=== PATIENT | female | born 1960 | race African-American/Black ===

== ENCOUNTER 2022-04-24 15:02 | Inpatient (IN) ==
[2022-04-24 17:22] LABS: Basophils # 0.1 10*3/uL (0.0-0.2); Eosinophils # 0.2 10*3/uL (0.0-0.87); Eosinophils % 3.6 % (0.00-10.9); Hemoglobin 6.8 GM/DL (12.0-16.0); Immature Granulocytes % 20.9 %; Lymphocytes # 1.3 10*3/uL (1.4-4.0); Lymphocytes % 19.9 % (21.3-54.2); Mean Corpuscular HGB Conc 30.9 GM/DL (32-36); Monocytes # 0.7 10*3/uL (0.11-0.8); Monocytes % 10.8 % (1.7-12.7); NRBC # 0.58 10*3/uL; Neutrophils % 43.8 % (38.7-73.9); Platelet Count 188 T/CUMM (130-400); Red Blood Count 1.88 MC/CUMM (3.8-5.5); Red Cell Distribution Width 22.4 % (9.3-17.3); White Blood Count 6.7 T/CUMM (4-12)
[2022-04-24 17:34] LABS: INR 1.2
[2022-04-24 17:41] LABS: Albumin 2.1 G/DL (3.4-5.0); Bilirubin,Total 1.2 MG/DL (0.20-1.00); Calcium 9.2 MG/DL (8.5-10.1); Osmolality,Calculated 282.5 MOS/KG (273-304); Potassium 4.7 MMOL/L (3.5-5.1); Total Protein 6.3 G/DL (6.4-8.2)
[2022-04-24] MEDS ORDERED: SODIUM CHLORIDE 0.9% 1,000 ML IV PRN (17:51)
[2022-04-24 18:32] LABS: Band Neutrophils 3 % (0-10); Eosinophils 3 % (0-10); Lymphocytes 22 % (20-55); Metamyelocytes 3 %; Myelocytes 9 %; Nucleated Red Blood Cells 7 /100 WBC (0-5); Total Cells Counted 100
[2022-04-24 18:36] LABS: Anisocytosis 1+; Macrocytosis 1+
[2022-04-24 18:38] LABS: Microcytosis Slight
[2022-04-24 18:39] LABS: Atypical Lymphocytes Few; Hypochromia Slight; Platelet Estimate Adequate
[2022-04-24] MEDS ORDERED: ZALEPLON 5 MG CAPSULE PO PRN (20:38)
[2022-04-24] MEDS ORDERED: MORPHINE 2 MG/1 ML SYRINGE IV PRN (20:38)
[2022-04-24] MEDS ORDERED: NICOTINE 21 MG/24 HR PATCH TRANSDERM PRN (20:38)
[2022-04-24] MEDS ORDERED: guaiFENesin/DM ER 600-30 MG TABLET PO PRN (20:38)
[2022-04-24] MEDS ORDERED: hydrALAZINE 20 MG/1 ML VIAL IV PRN (20:38)
[2022-04-24] MEDS ORDERED: diphenhydrAMINE CAP 25 MG CAPSULE PO PRN (20:38)
[2022-04-24] MEDS ORDERED: ACETAMINOPHEN 325 MG TABLET PO PRN (20:38)
[2022-04-24] MEDS ORDERED: ONDANSETRON 4 MG/2 ML VIAL IV PRN (20:38)
[2022-04-24 23:05] LABS: Mucus,Urine Occasional /LPF (Occasional); RBC,Urine 1 /HPF (0-4); Squamous Epithelial Cell,Urine Occasional /HPF (0-10)
[2022-04-24 23:08] LABS: Urine Appearance Clear (Clear); Urine Color Yellow (Yellow); Urine Specific Gravity 1.025 (1.001-1.035)
[2022-04-24 23:09] LABS: Bilirubin,Urine Small mg/dL (Negative); Blood, Urine Negative (Negative); Glucose,Urine (UA) Negative (Negative); Ketones,Urine Negative (Negative); Nitrite,Urine Negative (Negative); Protein,Urine Trace mg/dL (Negative)
[2022-04-25] MEDS: ALBUTEROL/IPRATROPIUM 3 ML NEB RESP TX SCH ×4 (00:40→19:15)
[2022-04-25 04:45] LABS: Basophils # 0.1 10*3/uL (0.0-0.2); Basophils % 1.4 % (0.0-0.8); Eosinophils # 0.2 10*3/uL (0.0-0.87); Eosinophils % 2.6 % (0.00-10.9); Hematocrit 25.1 VOL% (35.7-47.0); Immature Granulocytes % 18.4 %; Immature Granulocytes Absolute 1.22 #; Lymphocytes # 1.7 10*3/uL (1.4-4.0); Lymphocytes % 25.9 % (21.3-54.2); Mean Corpuscular HGB Conc 31.9 GM/DL (32-36); Mean Corpuscular Volume 108.7 FL (87-102); Monocytes # 0.7 10*3/uL (0.11-0.8); Monocytes % 9.9 % (1.7-12.7); NRBC # 0.57 10*3/uL; Neutrophils % 41.8 % (38.7-73.9); Platelet Count 171 T/CUMM (130-400); Red Blood Count 2.31 MC/CUMM (3.8-5.5); White Blood Count 6.6 T/CUMM (4-12)
[2022-04-25 04:58] LABS: Calcium 9.2 MG/DL (8.5-10.1); Osmolality,Calculated 279.7 MOS/KG (273-304); Potassium 4.3 MMOL/L (3.5-5.1)
[2022-04-25 05:13] LABS: Band Neutrophils 6 % (0-10); Eosinophils 4 % (0-10); Hypochromia Slight; Lymphocytes 34 % (20-55); Myelocytes 3 %; Nucleated Red Blood Cells 11 /100 WBC (0-5); Platelet Estimate Adequate; Total Cells Counted 100
[2022-04-25 05:14] LABS: Anisocytosis Slight; Giant Platelets Few
[2022-04-25] MEDS: PANTOPRAZOLE 40 MG VIAL IV SCH (09:48)
[2022-04-25] MEDS: BISACODYL 5 MG TABLET PO SCH ×2 (11:58→18:46)
[2022-04-25] MEDS: INSULIN LISPRO 100 UNIT/ML SUBCUT SCH ×2 (13:43→18:34)
[2022-04-25] MEDS ORDERED: BENZONATATE 100 MG CAPSULE PO PRN (14:16)
[2022-04-25] MEDS ORDERED: POLYETHYLENE GLYCOL POWDER 255 GM BOTTLE PO ONE (18:00)
[2022-04-25] MEDS ORDERED: MAGNESIUM HYDROXIDE SUSP 30 ML UDCUP PO ONE (21:00)
[2022-04-25] MEDS: FOLIC ACID 1 MG TABLET PO SCH (21:04)
[2022-04-26] MEDS: ALBUTEROL/IPRATROPIUM 3 ML NEB RESP TX SCH ×4 (01:05→20:06)
[2022-04-26] MEDS: INSULIN LISPRO 100 UNIT/ML SUBCUT SCH ×4 (01:09→18:35)
[2022-04-26] MEDS: BISACODYL 5 MG TABLET PO SCH (02:30)
[2022-04-26 06:01] LABS: Basophils # 0.1 10*3/uL (0.0-0.2); Basophils % 1.3 % (0.0-0.8); Eosinophils # 0.2 10*3/uL (0.0-0.87); Eosinophils % 2.6 % (0.00-10.9); Hematocrit 22.3 VOL% (35.7-47.0); Hemoglobin 7.4 GM/DL (12.0-16.0); Immature Granulocytes % 15.2 %; Immature Granulocytes Absolute 0.94 #; Lymphocytes # 1.3 10*3/uL (1.4-4.0); Lymphocytes % 21.7 % (21.3-54.2); Mean Corpuscular HGB Conc 33.2 GM/DL (32-36); Mean Corpuscular Volume 105.7 FL (87-102); Monocytes # 0.6 10*3/uL (0.11-0.8); Monocytes % 9.1 % (1.7-12.7); NRBC # 0.38 10*3/uL; Neutrophils % 50.1 % (38.7-73.9); Platelet Count 153 T/CUMM (130-400); Red Blood Count 2.11 MC/CUMM (3.8-5.5); Red Cell Distribution Width 23.8 % (9.3-17.3); White Blood Count 6.2 T/CUMM (4-12)
[2022-04-26 06:13] LABS: Osmolality,Calculated 272.1 MOS/KG (273-304); Potassium 3.9 MMOL/L (3.5-5.1)
[2022-04-26] MEDS: LEVOTHYROXINE 75 MCG TABLET PO SCH (06:16)
[2022-04-26 06:45] LABS: Eosinophils 4 % (0-10); Hypochromia 1+; Lymphocytes 43 % (20-55); Microcytosis Slight; Nucleated Red Blood Cells 4 /100 WBC (0-5); Platelet Estimate Adequate; Total Cells Counted 100
[2022-04-26 06:46] LABS: Atypical Lymphocytes Few
[2022-04-26] MEDS ORDERED: SODIUM CHLORIDE 0.9% 1,000 ML IV PRN (06:50)
[2022-04-26] MEDS: atenoloL 50 MG TABLET PO SCH (08:46)
[2022-04-26] MEDS: PANTOPRAZOLE 40 MG VIAL IV SCH (08:47)
[2022-04-26] MEDS: FOLIC ACID 1 MG TABLET PO SCH ×2 (08:47→20:39)
[2022-04-26] MEDS ORDERED: MERCAPTOPURINE 50 MG TABLET PO SCH ×2 (09:00)
[2022-04-26] MEDS ORDERED: LIDOCAINE 2% 5 ML VIAL ONE (09:56)
[2022-04-26] MEDS ORDERED: propofoL 200 MG/20 ML VIAL IV ONE (09:56)
[2022-04-26] MEDS ORDERED: MIDAZOLAM 2 MG/2 ML VIAL ONE (09:57)
[2022-04-26] MEDS ORDERED: KETAMINE 500 MG/10 ML VIAL ONE (09:57)
[2022-04-26 22:53] LABS: Hematocrit 26.1 VOL% (35.7-47.0); Hemoglobin 8.7 GM/DL (12.0-16.0)
[2022-04-27] MEDS: INSULIN LISPRO 100 UNIT/ML SUBCUT SCH ×3 (01:09→11:33)
[2022-04-27] MEDS: ALBUTEROL/IPRATROPIUM 3 ML NEB RESP TX SCH ×2 (01:18→08:00)
[2022-04-27 06:15] LABS: Basophils # 0.1 10*3/uL (0.0-0.2); Basophils % 1.5 % (0.0-0.8); Eosinophils # 0.1 10*3/uL (0.0-0.87); Eosinophils % 2.4 % (0.00-10.9); Hemoglobin 8.8 GM/DL (12.0-16.0); Immature Granulocytes % 13.9 %; Immature Granulocytes Absolute 0.74 #; Lymphocytes # 1.2 10*3/uL (1.4-4.0); Lymphocytes % 23.4 % (21.3-54.2); Mean Corpuscular HGB Conc 32.6 GM/DL (32-36); Mean Corpuscular Volume 103.1 FL (87-102); Monocytes # 0.4 10*3/uL (0.11-0.8); Monocytes % 7.2 % (1.7-12.7); NRBC # 0.18 10*3/uL; Neutrophils % 51.6 % (38.7-73.9); Red Blood Count 2.62 MC/CUMM (3.8-5.5); Red Cell Distribution Width 21.2 % (9.3-17.3); White Blood Count 5.3 T/CUMM (4-12)
[2022-04-27 06:17] LABS: Platelet Count 122 T/CUMM (130-400)
[2022-04-27 06:21] LABS: Calcium 8.6 MG/DL (8.5-10.1); Osmolality,Calculated 270.2 MOS/KG (273-304); Potassium 4.1 MMOL/L (3.5-5.1)
[2022-04-27 07:09] LABS: Band Neutrophils 2 % (0-10); Eosinophils 3 % (0-10); Hypochromia Slight; Lymphocytes 49 % (20-55); Nucleated Red Blood Cells 6 /100 WBC (0-5); Platelet Estimate Normal; Total Cells Counted 100
[2022-04-27] MEDS: LEVOTHYROXINE 75 MCG TABLET PO SCH (07:13)
[2022-04-27] MEDS: PANTOPRAZOLE 40 MG VIAL IV SCH (09:00)
[2022-04-27] MEDS: FOLIC ACID 1 MG TABLET PO SCH (09:00)
[2022-04-27] MEDS: atenoloL 50 MG TABLET PO SCH (09:00)
[2022-04-27 11:38] VITALS: BP 94/59
== END 2022-04-27 12:50 | disposition home health service (06) | DRG 812 ==
LOC: N.ED 15:02 → N.EDINP 20:38 → N.3E 04-25 08:18
PROVIDERS: ADMIT Hospitalist; ATTEND Hospitalist